=== PATIENT | female | born 1995 | race Caucasian/White ===

== ENCOUNTER 2019-06-24 21:32 | Emergency (ER) | payer OTHER ==
[~2019-06-24] VITALS: Ht 170.2 cm; Wt 62.6 kg
[2019-06-25] MEDS ORDERED: THERA1 EACH PO (01:04)
== END 2019-06-25 03:18 | disposition home or self-care (01) ==
LOC: ER 21:32
DX: S93.402A Sprain of unspecified ligament of left ankle, initial encounter (principal); F17.200 Nicotine dependence, unspecified, uncomplicated; W18.30XA Fall on same level, unspecified, initial encounter
CPT/HCPCS: 29515; 73610; 99283-25; L1906